=== PATIENT | female | born 1950 | race Caucasian/White ===

== ENCOUNTER → 2017-02-14 | Outpatient (CLI) | payer OTHER ==
[~2017-02-14] VITALS: Ht 165.1 cm; Wt 104.3 kg
[~2017-02-14] MED LIST: APRESOLINE50 MG PO; INVOKANA100 MG PO; METFORMIN HCL500 MG PO
[2017-02-14 10:06] LABS: POINT-OF-CARE METER ID UU14107333
== END | disposition home or self-care (01) ==
LOC: AMB 09:10
PROVIDERS: Internal Medicine
PROC: 0DBK8ZX Excision of Ascending Colon, Via Natural or Artificial Opening Endoscopic, Diagnostic (ICD-10-PCS; principal; 2017-02-14)
DX: Z12.11 Encounter for screening for malignant neoplasm of colon (principal); K63.5 Polyp of colon; K64.8 Other hemorrhoids; D17.5 Benign lipomatous neoplasm of intra-abdominal organs; Z87.891 Personal history of nicotine dependence; E11.9 Type 2 diabetes mellitus without complications; Z79.84 Long term (current) use of oral hypoglycemic drugs; Z80.3 Family history of malignant neoplasm of breast; Z82.49 Family history of ischemic heart disease and other diseases of the circulatory system; Z83.3 Family history of diabetes mellitus
CPT/HCPCS: 82948; 88305; 93005; J2250; J3010

== ENCOUNTER 2017-11-08 18:37 | Emergency (ER) | payer OTHER ==
[~2017-11-08] VITALS: Ht 162.6 cm; Wt 110.4 kg
[2017-11-08] MEDS ORDERED: NAPROSYN500 MG PO (21:28)
[2017-11-08] MEDS ORDERED: FLEXERIL10 MG PO (21:28)
[2017-11-08] MEDS ORDERED: NORCO 10/3251 TABLET PO (21:28)
[2017-11-08 21:58] VITALS: BP 184/84
== END 2017-11-08 22:05 | disposition home or self-care (01) ==
LOC: EME 18:37
DX: S39.012A Strain of muscle, fascia and tendon of lower back, initial encounter (principal); V43.52XA Car driver injured in collision with other type car in traffic accident, initial encounter; Y92.410 Unspecified street and highway as the place of occurrence of the external cause; Z79.84 Long term (current) use of oral hypoglycemic drugs; Z87.891 Personal history of nicotine dependence
CPT/HCPCS: 99281; 99284; J1885